=== PATIENT | male | born 1990 | race Caucasian/White ===

== ENCOUNTER 2017-03-13 23:22 | Emergency (ER) | payer OTHER | END 2017-03-14 00:42 | disposition other institution (70) | LOC: ED 23:22 | DX: Z02.89 Encounter for other administrative examinations (principal) ==

== ENCOUNTER 2017-03-13 23:22 | Emergency (ER) | payer OTHER ==
[2017-03-14 00:41] VITALS: BP 120/72
== END 2017-03-14 00:42 | disposition other institution (70) ==
LOC: ED 23:22
DX: S00.83XA Contusion of other part of head, initial encounter (principal); Y35.893A Legal intervention involving other specified means, suspect injured, initial encounter; Y93.89 Activity, other specified; Y92.89 Other specified places as the place of occurrence of the external cause; Y99.8 Other external cause status